=== PATIENT | female | born 1955 | race Caucasian/White ===

== ENCOUNTER 2022-09-09 11:54 | Outpatient (CLI) | payer OTHER, SELFPAY ==
--- NOTE | ~2022-09-09 | XR_ITS ---
EXAMINATION: XR lumbar spine 2-3V DATE: 09/09/2022 12:44 INDICATION: Low back pain TECHNIQUE: Anteroposterior and lateral views of the lumbar spine, and cone-down lateral view of the l umbosacral junction were obtained. COMPARISON: None. FINDINGS: There are 4 mm of anterolisthesis of L5 on S1. Vertebral body alignment is otherwise mainta ined. There is severe loss of intervertebral disc space height at L1-2 and L2-3 and moderate loss of intervertebral disc space height throughout the remainder of the lumbar spine. The vertebral body hei ghts are normal. There is no fracture. There is severe facet osteoarthritis of the lower lumbar spine . An IVC filter is noted. There is calcified atherosclerosis of aorta. A single lead neurostimulator device is implanted in the left flank subcutaneous tissues ends with its lead in the central spinal c anal at the level of the T9 vertebral body. IMPRESSION: 1. Severe lumbar spondylosis without acute findings. Reviewed, dictated and finalized at location B. [employer]HOLD APPLIANCE MECHANIC
--- NOTE | ~2022-09-09 | XR_ITS ---
EXAM: XR_CERV2-3V_CR DATE: 09/09/2022 12:43 HISTORY: neck pain . COMPARISON: None available. FINDINGS: Stimulator leads terminate posterior to C4 and C5. Craniocervical association and atlantoa xial joint are aligned and display mild degenerative change. No prevertebral soft tissue swelling. 2 mm anterolisthesis at C4-5. 3 mm retrolisthesis at C5-6. Reversed lordosis centered at C5. Mild verte bral body height loss at C5. Severe disc space narrowing and uncovertebral joint hypertrophy at C5-6. Moderate narrowing at C6-7. Normal facets and posterior elements. IMPRESSION: Multilevel grade 1 degenerative listheses. Multilevel degenerative disc disease, severe a t C5-6. Severe cervical facet arthropathy. Reviewed, dictated and finalized at location K. D EXECUTIVE IMPRESSION: Multilevel grade 1 degenerative listheses. Multilevel degenerative disc disease, severe at C5-6. Severe cervical facet arthropathy.
--- NOTE | ~2022-09-09 | XR_ITS ---
EXAMINATION: XR thoracic spine 2V DATE: 09/09/2022 12:43 INDICATION: Back pain TECHNIQUE: AP, lateral and lateral swimmer's views of the thoracic spine were obtained. COMPARISON: None. FINDINGS: There is no fracture, dislocation, or subluxation. The vertebral body heights are normal. T here is moderate loss of intervertebral disc space height throughout the thoracic spine. Small degene rative osteophytes project from the anterior endplates of multiple vertebral bodies. A neurostimulato r lead ends in the central spinal canal at the level of the T9 vertebral body. Two additional neurost imulator leads in the central spinal canal in the upper thoracic spine and and at the level of the mi d cervical spine. IMPRESSION: 1. Severe thoracic spondylosis without acute findings. Reviewed, dictated and finalized at location B. RETE CONVEYOR OPERATOR
== END 2022-09-09 11:55 | disposition home or self-care (01) ==
PROVIDERS: PCP Internal Medicine; Visit Provider Neurological Surgery
DX: M47.896 Other spondylosis, lumbar region (principal); M47.894 Other spondylosis, thoracic region; M50.322 Other cervical disc degeneration at C5-C6 level
CPT/HCPCS: 72040; 72070; 72100